=== PATIENT | female | born 1980 | race Caucasian/White ===

== ENCOUNTER → 2018-06-19 09:49 | Outpatient (CLI) | payer BC, SELFPAY ==
[2018-06-19 10:38] LABS: Hematocrit 41.9 % (37-47); Hemoglobin 14.3 g/dl (12.0-15.0); Mean Corp Hgb Conc 34.1 g/gl (32-36); Mean Corpuscular Hgb 31.8 pg (27.0-32.0); Mean Corpuscular Volume 93.1 fL (81-99); Mean Platelet Vol. 10.5 fl (6.2-12.0); Platelet Count 232 K/mm3 (150-450); RBC Distribution Width CV 12.1 % (11.6-14.6); RBC Distribution Width SD 41.1 fl (35.1-43.9); White Blood Count 5.1 K/mm3 (4.4-11.0)
[2018-06-19 10:42] LABS: Scan Indicated on CBC? Y/N NO
[2018-06-19 10:55] LABS: Estradiol 294.9 pg/mL; Free T3 2.7 pg/mL (2.18-3.98); Progesterone Level 0.18 ng/mL (See Comment); T4 Free Direct 1.12 ng/dL (0.76-1.46); Thyroid Stim Hormone (TSH) 1.29 uIU/mL (0.358-3.74)
[2018-06-19 11:04] LABS: Hemoglobin A1c 4.8 % (4.2-6.3)
[2018-06-20 08:57] LABS: Sex Hormone-binding Globulin 183.1 nmol/L (24.6-122.0)
[2018-06-21 13:30] LABS: HPV Reflexed? NOT INDICATED
== END ==
PROVIDERS: Visit Provider Obstetrics & Gynecology
DX: Z12.4 Encounter for screening for malignant neoplasm of cervix (principal); R10.2 Pelvic and perineal pain
CPT/HCPCS: 36415; 82670; 83036; 84144; 84270; 84403; 84439; 84443; 84481; 85027; 88175; G0145

== ENCOUNTER → 2019-09-05 | Outpatient (CLI) | payer BC, SELFPAY | END | disposition home or self-care (01) | LOC: LABSPEC 15:40 | PROVIDERS: Visit Provider Obstetrics & Gynecology | DX: Z12.4 Encounter for screening for malignant neoplasm of cervix (principal) ==

== ENCOUNTER 2020-02-12 12:51 | Inpatient (IN) | payer BC, SELFPAY ==
[2020-02-06 17:36] LABS: Hematocrit 39.7 % (37-47); Hemoglobin 13.7 g/dL (12.0-15.0); Mean Corp Hgb Conc 34.5 g/dL (32-36); Mean Corpuscular Hgb 32.5 pg (27.0-32.0); Mean Corpuscular Volume 94.1 fL (81-99); Mean Platelet Vol. 10.3 fl (6.2-12.0); Platelet Count 262 K/mm3 (150-450); RBC Distribution Width CV 11.7 % (11.6-14.6); RBC Distribution Width SD 39.8 fl (35.1-43.9); Red Blood Count 4.22 M/mm3 (4.2-5.4); White Blood Count 5.8 K/mm3 (4.4-11.0)
[2020-02-06 17:51] LABS: International Normalized Ratio 0.9; Prothrombin Time (Protime)PT. 12.1 SECONDS (11.7-14.9)
[2020-02-06 18:05] LABS: ALB/GLOB Ratio 1.2 RATIO (0.9-2.4); AST(SGOT) 16 U/L (15-37); Alanine Aminotransfer ALT/SGPT 23 U/L (13-56); Albumin, Serum 3.8 g/dL (3.2-5.0); Alkaline Phosphatase 62 U/L (45-117); Anion Gap 5 (5-15); BUN 16 mg/dL (7-18); BUN/Creat Ratio 17.5 RATIO (10-20); Calcium,Total 9.1 mg/dL (8.5-10.1); Chloride 108 mmol/L (98-107); Creatinine, Serum 0.91 mg/dL (0.55-1.02); EST Glomerular Filtration Rate 73 mL/min (>60); Est Glom Filt Rate - Afr Amer 88 mL/min (>60); Globulin 3.2 g/dL (2.2-4.2); Glucose 99 mg/dL (74-106); Magnesium 2.2 mg/dL (1.6-2.6); Sodium Level 142 mmol/L (136-145)
--- NOTE | 2020-02-11 08:52 | PCM.HPOB.BLA ---
- Problem List (1) Dysmenorrhea Status: Acute (2) Excessive and frequent menstruation with irregular cycle Status: Acute History and Physical Date of Admission: 02/12/20 Surgical History and Physical Date: 02/10/2020 Name: AVNI JOHNS Age: 39 Date of : 1980 Avni Johns, a 39 year old female 0 0 0 0 0, presents for LAVH, bilateral salpingectomy on February 12, 2020 at 7:30. -- Avni is her for pre op. LAVH scheduled 02/12/20, surgery pkt reviewed, consents signed and given to PT. No complaints or questions expressed today. LJW as above. Scheduled for LAVH, bilateral salpingectomy for irregular menstruation with persistent pelvic pain and dysmenorrhea. shm MEDICATIONS HISTORY: Current medications prescribed by our practice are: 1. Supplement (s) [No Strength], As Directed ALLERGIES: No Known Drug Allergies Infections - [place] Illnesses - arthritis Accidents - None Hospitalizations - see surgery left leg calf blood clot - 2006; Review of Systems: GENERAL - Denies fever, or chills SKIN - Denies skin changes EYES - Denies visual changes EARS - Denies difficulty hearing NOSE - Denies nasal congestion or bleeding MOUTH - Denies sore throat or difficulty swallowing NECK - Denies pain or swelling RESPIRATORY - Denies shortness of breath or wheezing CARDIOVASCULAR - Denies palpitations or chest pain GASTROINTESTINAL - Denies nausea, vomiting, diarrhea, constipation GENITOURINARY - missed period MUSCULOSKELETAL - Denies joint or muscle pain NEUROLOGICAL - Denies localized numbness or weakness PSYCHIATRIC - Denies depression or anxiety ENDOCRINE - Denies heat or cold intolerance, weight loss or gain HEMATO-IMMUNOLOGIC - Denies excesive bleeding with cuts SOCIAL HISTORY: Alcohol Use - drinks occasionally Smoking - denies smoking Diet - balanced Diet Lifestyle - moderate stress lifestyle Exercise - regular Seat Belt Use - always Employer - [employer] Job Description - HR Illicit Drug Use - denies use of street drugs Sexual Activity - [employer] Hours Worked - 40 hours per week Control - condoms FAMILY HISTORY: MENSTRUAL HISTORY: LMP Known?- DefiniteAmount/Duration - 4-5 days, Regularity - Regular, Frequency - monthly days, LMP - 01/30/20, Age Onset Menarche - 10 PAST PREGNANCIES: Total Pregnancies - 0; Full Term Pregnancies - 0; Premature - 0; Abortions, Induced - 0; Abortions, Spontaneous - 0; Ectopics - 0; Multiple Births - 0; Living Children - 0 SURGICAL HISTORY: 1. 02/26/2009 cholecystectomy ; - 2. 02/26/1995 left knee surgery ; - 3. 02/26/1986 eardrum reconstruction, T ; - PHYSICAL EXAM BP- 118/78 Sitting, Right arm, large cuff Weight- 222.62158 lbs Height- 63.00 inch BMI:39.41 CONSTITUTIONAL - NAD, well nourished, and well developed SKIN - No rash, lesions, or ulcers HEENT - normocephalic, atraumatic, sclerae anicteric LUNGS - CTA x2 without wheezes, crackles or rales CARDIAC - Regular rate and rhythm without rubs, murmurs, or gallops ABDOMEN - Without hepatosplenomegaly, distention, masses, rebound, or guarding; normal bowel sounds; no hernias EXTREMITIES - No edema or calf tenderness NEUROLOGICAL - normal gait, normal balance, normal motor PSYCHIATRIC - A and O to time, place, person, mood and affect External Genitial Vagina - non-tender without lesions Urethra/Urethral Meatus - non-tender Bladder - non-tender Vagina - vaginal zambrano are pink and moist without loss of rugae and no evidence of atropy Cervix - without cervical motion tenderness and has normal size and features without evident lesions Uterus - enlarged uterus 8 wks, wt 125-150 g Adnexa - clear without massess or tenderness pap 09/05/2019 - nilm ASSESSMENT/PLAN: 1. Dysmenorrhea, Unspecified, Irregular Menstruation, Unspecified and Pelvic And Perineal Pain Plan for LAVH, bilateral salpingectomy with ovarian conservation Procedural r/b/i/a reviewed, consents signed r/b ovarian conservation also reviewed Discussed anticipated outpatient hospital course, postop recovery and restrictions Preop labs and COVID19 testing pending Pt given opportunity to ask questions and questions answered to her satisfaction.
[2020-02-12] VITALS (13 sets, daily range): BP systolic 92–133; BP diastolic 47–80; PULSE 61–103; RESP 16–18; TEMP 36.2–37.2; O2SAT 94–100; BMI 38.2
[2020-02-12 05:51] LABS: Internal QC Validated? YES +Cl - CLEAR BKGD
[2020-02-12 05:52] LABS: Pregnancy, Urine Negative Negative
[2020-02-12] MEDS: Lactated Ringers 1,000 ML 40 ML IV ×3 (06:14→12:31)
[2020-02-12] MEDS: Heparin Injection (Vial) 5,000 UNIT/ML VIAL 5000 UNIT SC ×2 (06:14→20:20)
[2020-02-12] MEDS: Acetaminophen 500 MG Tablet 1000 MG PO ×2 (06:14→17:58)
[2020-02-12] MEDS: Gabapentin 600 MG Tablet PO (06:15)
[2020-02-12] MEDS: Celecoxib 200 MG Capsule 400 MG PO (06:15)
[2020-02-12 06:45] LABS: Bedside Glucose 96 mg/dL (70-110)
--- NOTE | 2020-02-12 07:30 | HYST_PTH ---
PATIENT: AVNI JOHNS LOC: [facility] U#:[id number] AGE/SX: 39/F ROOM: [facility]301 RE02/12/[address]: Dr. Ricarda Bryant MD : 1980 BED: 1 DIS: 02/14/2020 SPEC #: [id number] RECD: 02/12/20 13:33 STATUS: HIEN REKaran #: [id number] RADHA: 02/12/20 07:[address]: Ricarda Carrizales DEPT: SURGICAL PATHOLOGY RECD BY: Eva Cartwright ENTERED: 02/13/20 08:12 SP TYPE: HYSTERECT OTHR DR: No Primary Care Phys Tissues: Uterus, NOS Procedures: Surgery Specimen Level V HEADER OPERATION: ERAS, hysterectomy, laparoscopic assisted vaginal hysterectomy PRE-OP DIAGNOSIS: Dysmenorrhea; excessive and frequent menstruation TISSUE SUBMITTED: Uterus, cervix and bilateral fallopian tubes MICROSCOPIC DIAGNOSIS Uterus, cervix and bilateral fallopian tube, vaginal hysterectomy and bilateral salpingectomy: Cervix - mild chronic inflammation. Endometrium - proliferative endometrium. Myometrium - intramural leiomyomas (largest measuring 1.5 cm in greatest dimension). - Focal adenomyosis. Bilateral fallopian tube - no pathologic diagnosis. SJ:norman 02/16/20 MICROSCOPIC DESCRIPTION Slides are reviewed. GROSS DESCRIPTION Received in fixative is one container labeled with the patient's name and designated uterus. The specimen consists of a uterus with attached cervix and attached left fallopian tube and detached right fallopian tube. The uterus with cervix measures 7.5 x 6 x 3.7 cm and weighs 65 gm. The ectocervix is grossly unremarkable. The endocervical canal measures 3.2 cm in length and is grossly unremarkable. The elongated endometrial cavity measures 3.2 x 2 cm. The reddish-cuevas, velvety endometrium measures 0.2 cm in thickness. The myometrium measures 1.5 cm in average thickness and contains multiple rubbery cuevas-white nodules ranging in size from 0.9 to 1.5 cm in greatest dimension. The right and left fallopian tubes are similar in appearance with average lengths of 5.0 cm and average diameters of 0.5 cm. A distinct fimbriated end is not identified in the right fallopian tube. Glass Toughening Operator sections are submitted in ten cassettes as follows: 1 - anterior cervix, 2 - posterior cervix, 3 & 4 - anterior uterine wall, 5 & 6 - posterior uterine wall, 7 & 8 - myometrial masses, 9 - right fallopian tube, 10 - left fallopian tube. / AM:norman 02/13/20 TC:1 CPT: 28001
[2020-02-12] MEDS: Cefazolin 2 GM in 0.9% Normal Saline 100 ML IV (07:40)
[2020-02-12] MEDS: Bupivacaine 0.25% 30 ML Vial (08:12)
--- NOTE | 2020-02-12 12:30 | OP.PCM_ITS ---
Report of Operation Date of Procedure: 02/12/20 Pre-Operative Diagnosis: Bladder injury, cystotomy Post-Operative Diagnosis: Same Surgery/Procedure Performed:: Open repair of bladder injury cystotomy and cystoscopy Description of Surgical Findings:: 39-year-old female who was undergoing a laparoscopic assisted vaginal hysterectomy during the middle the case I was called in to assist because the active directory engineer had recognized an injury to her bladder on cystoscopy. I came down to the operating room immediately after being called we did a cystoscopy and he could see that a trocar was in the dome of the bladder coming through an extraperitoneal puncture site. And then inferior to the trocar was a puncture site x2 where an apparent instrument advanced through the bladder to assist with the hysterectomy. After evaluating the patient we did a cystoscopy we saw the trocar injury in the top of the bladder the trocar was still in place and we saw the posterior injury through the posterior aspect of the bladder it was behind the trigone both the left and right ureter orifice were effluxing and clear no injury to the ureter was identified. At this point I looked in laparoscopically she was a very obese lady with a BMI of 38 and lots of bowel in the way and the injury was deep in the pelvis so I recommended we proceed with an open repair of his bladder injury. So we made a Pfannenstiel incision dissected down through the fat down to the anterior fascia we opened up the fascia and advanced the like incision we freed up the rectus muscle off the fascia and then we opened up the rectus muscle in the midline identified the peritoneum and opened up the peritoneum. Then we placed a self-retaining retractor inside the abdomen we packed off the small bowel with 2 lap sponges. We then used a deep Kyung to retract the ovaries and the sigmoid colon off the bladder. The catheter then placed by the nursing staff into the bladder when I looked inside deep in the pelvis the catheter was through the hole in the back of the bladder. So we deflated the balloon and the catheter he pulled the catheter back this allowed me to see the first hole in the back of the bladder. Place to stay stitch on this whole and then I did several interrupted stitches following up along the midline of the bladder. We then placed the catheter back in the bladder and filled the bladder up with 100 cc of sterile saline and there was still leakage coming from the bladder fairly significant the retracted the bladder up more and could see there was posterior to the first puncture there is another large puncture right in the midline. I then ran the stitch line along this puncture site to close the second perforation that was identified. This was using a 3-0 Vicryl with a continuous stitch. After he woke finished closing the second hole that was along the same line filled the bladder up in the still some minor leakage. We looked back in with a cystoscope we could see that the mucosa was together but there was still some minor leakage somewhere along the suture line so I then at this point I used a second 3-0 Vicryl and then a second interrupted layer to close the bladder in 2 layers. Then we filled the bladder up again with water and at this point there was very little leakage and was a satisfactory closure. I did not think any further sutures would be of much use and the mucosa was together. Then at this point the bladder was mostly leaking from the puncture site in the top of the bladder but this was extraperitoneal and since we can let this heal from the extraperitoneal fashion its not necessary to close this bladder puncture site since it will be extraperitoneal. At this point the catheter was left in the patient's bladder we then removed the 2 lap sponges we then closed the peritoneum and then we closed the fascia with strata fix and then the incision was closed by the active directory engineer. She will need to go home with a catheter and she will need a cystogram and an office visit in 2 weeks for checkup. Successful closure of a bladder injury during a laparoscopic assisted hysterectomy a very complicated injury in the posterior aspect of bladder and very difficult repair but at the end I think we got the repair close together satisfactorily and I think if the catheter is left and it should heal up properly. Type of Anesthesia:: General Drains: sandoval 18 fr - Admit VTE Documentation VTE Present on Admission: No
[2020-02-12] MEDS: Ondansetron 4 MG/2 ML Vial IV (12:41)
--- NOTE | 2020-02-12 12:58 | PCM.OPRPT ---
Problem List (1) Dysmenorrhea Status: Acute (2) Excessive and frequent menstruation with irregular cycle Status: Acute Report of Operation Date of Procedure: 02/12/20 Pre-Operative Diagnosis: 1. Dysmenorrhea. 2. Excessive and frequent menstruation with irregular cycle Post-Operative Diagnosis: 1. Dysmenorrhea. 2. Excessive and frequent menstruation with irregular cycle. 3. Cystotomy Surgery/Procedure Performed:: 1. Total laparoscopic hysterectomy. 2. Bilateral salpingectomy. 3. Cystoscopy. 4. Exploratory laparotomy. 5. cystotomy repair Description of Surgical Findings:: Narrow bony pelvis Normal-appearing uterus, bilateral tubes and ovaries No evidence of endometriosis pullman clerk: Rhoda Mckinney pullman clerk: Joselin Waters Type of Anesthesia:: General, Local Anesthesiologist: José Miguel Eng Specimen's removed: 1. uterus, cervix, bilateral tubes Drains: 350 ml Estimated Blood Loss (mL): 500 ml Fluids Replaced: 2000 ml Description of Procedure: Indications: 39-year-old nulligravida with a history of chronic dysmenorrhea refractory to medical management as well as frequent and irregular menstruation presents for scheduled hysterectomy, bilateral salpingectomy with ovarian conservation. The patient was counseled regarding TLH versus LAVH given the lack of descensus with final plan to be assessed intraoperatively. Procedure: Patient was brought to the operating room and signed was performed. She is placed in the dorsal supine position and induced under general anesthesia and intubated. She was repositioned to dorsolithotomy and examination under anesthesia was performed. Her arms were tucked at her sides. The abdomen and perineum were prepped and draped in sterile fashion. A Ashford catheter was placed into the bladder patient was placed into high lithotomy and a speculum placed vaginally. The cervix was grasped the anterior cervical lip and the uterus sounded to 7 cm. An Advincula uterine manipulator was placed, the tenaculum removed and the manipulator was secured secured. The patient was placed into low lithotomy attention turned to the abdomen. An inferior umbilical incision was made using the scalpel and Veress needle was placed with successful hanging drop test and no aspirate. Abdominal entry pressure was less than 5 mmHg. The abdomen was insufflated to 15 mmHg. The Veress needle was removed and a 5 mm port was placed at this site under laparoscopic guidance into the abdomen. A tap block was placed under laparoscopic guidance in the right and left lower quadrant using half percent Sensorcaine. Incisions were made at each of the sites and 5 mm ports also placed. A incision was also made suprapubically and a 5 mm port also placed at the site. The patient was placed into Trendelenburg. the abdomen and pelvis were inspected there was no evidence of endometriosis or significant scar tissue. Attention was turned to the left adnexa. The left tubal fimbria was identified and the left mesosalpinx was transected to the level of the uterine cornua using the Enseal device. In the process of this the tube was transected and removed via the port. The left round ligament was clamped, electrocoagulated and cut. The broad ligament was opened anteriorly posteriorly and dissection performed to identify the ureter. The left bladder flap was created and uterine vessels were skeletonized with opening of the posterior leaflet of the broad ligament and the left utero-ovarian ligament was serially clamped electrocoagulated and cut using the Enseal device. Right salpingectomy was performed using the Enseal device. The right tube was transected at the cornual region and removed via ports. Although I could identify the right ureter at the level of the pelvic brim was unable to be identified further in the pelvis peritoneally. Right round ligament was clamped, electrocoagulated and cut also using the Enseal. The right broad ligament was opened anteriorly posteriorly and dissection performed however the ureter was still not yet identified. The right bladder flap was created completion of the bladder flap using the monopolar luciano and uterine vessels were skeletonized with opening of the posterior leaflet of the broad ligament. The right utero-ovarian ligament was serially clamped electrocoagulated and cut using the Enseal device. The uterine vessels bilaterally were clamped, electrocoagulated and cut using the Enseal device. A colpotomy was performed using the monopolar luciano. The manipulator vaginal balloon cuff was inflated. There was bleeding from an apical right vaginal arteriole. Suction clinical education coordinator was introduced to gain further visualization. The vessel was unable to be clamped appropriately using the Enseal device and instead was successfully clamped using the [place] grasper. Monopolar electrocoagulation was performed with excellent hemostasis obtained. The posterior cul-de-sac sac was subsequently cleared of blood and clot and completion of the colpotomy made again using the monopolar luciano. The patient was flattened and attention turned to the perineum. She was placed into high lithotomy. The Advincula cuff balloon was deflated and the manipulator was removed along with the uterus and cervix. The vaginal cuff was reapproximated using serial figure of 8-0 Vicryl sutures. Cystoscopy was performed demonstrating bilateral ureteral reflux however it appeared there was a defect in the posterior bladder apical to the trigone. I called Dr. Briggs, Urology, for intraoperative consultation for cystotomy repair. The patient was placed into low lithotomy and I returned to the abdomen. The abdomen was reinsufflated and laparoscopy again performed it appeared that the suprapubic trocar had dislodged no longer in the abdomen and there was fluid accumulation in the pelvis consistent with blood-tinged cystoscopy fluid. I attempted to replace the suprapubic trocar however at this time Dr. Briggs arrived, thus I aborted replacement of the trocar. Dr. Briggs scrubbed in. Please see his note for further details of his repeat cystoscopy and ex lap via Pfannenstiel which was performed to repair the bladder injury cystotomy. The peritoneum was closed using 2-0 Vicryl and the fascia was closed using oh strata fix. The subcutaneous tissue was reapproximated using 2-0 Vicryl running suture by myself. The skin was reapproximated using 4-0 Monocryl. The additional laparoscopic port sites were closed using 4-0 Monocryl. Steri-Strips and OpSite were placed over those sites well a Mepilex occlusive dressing was placed over the Pfannenstiel. The patient was placed into dorsal supine position, awakened, extubated and transferred to the recovery room without complication. Sponge, instrument and needle counts were correct x2. - Complications Bladder injury cystotomy - Admit VTE Documentation VTE Present on Admission: No VTE Mechan Device Prophylaxis: SCD's VTE Pharm Prophylaxis ordered?: Yes
[2020-02-12] MEDS: Tolterodine Tartrate 4 MG CAP.SA PO (14:15)
[2020-02-12] MEDS: Ketorolac 30 MG/ML Syringe IV ×2 (16:18→20:20)
--- NOTE | 2020-02-12 17:14 | PCM.DC.URO ---
Suture Line Care: Avoid Pulling/Pushing, Avoid Pinching/Bending Catheter: Ashford to leg bag, Ashford to large bag Drain: [place] Allergies/Adverse Reactions: Allergies No Known Allergies Allergy (Verified 02/06/20 08:03) Medications to take at Discharge Fexofenadine HCl [[place] Allergy] 60 mg PO DAILY 02/06/20 Fish,Saf,Flx,Brg Oils/O3,6,9N2 [Dyek-Qwyd-Fqmnkd Oil Softgel] 3 ea PO DAILY 02/06/20 Multivitamin [One Daily Essential] 1 ea PO DAILY 02/06/20 [place]-3 Fatty Acids [Fish Oil] 500 mg PO DAILY 02/06/20 Primary Care Physician: Care Physician,No Primary [Primary Care Provider] - Test Results: Test results from this visit will be discussed in further detail at your follow-up appointment, if applicable. Please Follow Up With: Niko Briggs MD - [phone] When: please call to make an appointment.
[2020-02-12] MEDS: Docusate Sodium 100 MG Capsule PO (20:21)
[2020-02-13] MEDS: Acetaminophen 500 MG Tablet 1000 MG PO ×4 (01:00→18:00)
[2020-02-13 01:04] VITALS: BP 103/53; PULSE 102; RESP 18; TEMP 36.8; O2SAT 94
[2020-02-13] MEDS: Ketorolac 30 MG/ML Syringe IV ×2 (02:53→08:29)
[2020-02-13] MEDS: 0.9% Saline Lock 10 ML Syringe IV ×6 (02:58→21:02)
[2020-02-13 03:00] VITALS: BP 97/52; PULSE 94; RESP 16; TEMP 36.9; O2SAT 96
[2020-02-13 07:20] VITALS: O2SAT 98
[2020-02-13 07:21] LABS: Hematocrit 29.4 % (37-47); Hemoglobin 9.9 g/dL (12.0-15.0); Mean Corp Hgb Conc 33.7 g/dL (32-36); Mean Corpuscular Hgb 31.6 pg (27.0-32.0); Mean Corpuscular Volume 93.9 fL (81-99); Mean Platelet Vol. 10.2 fl (6.2-12.0); Platelet Count 199 K/mm3 (150-450); RBC Distribution Width CV 11.9 % (11.6-14.6); RBC Distribution Width SD 40.9 fl (35.1-43.9); Red Blood Count 3.13 M/mm3 (4.2-5.4); White Blood Count 9.7 K/mm3 (4.4-11.0)
[2020-02-13 07:53] LABS: Anion Gap 5 (5-15); BUN 10 mg/dL (7-18); BUN/Creat Ratio 12.7 RATIO (10-20); Calcium,Total 7.5 mg/dL (8.5-10.1); Chloride 109 mmol/L (98-107); Creatinine, Serum 0.79 mg/dL (0.55-1.02); EST Glomerular Filtration Rate 86 mL/min (>60); Est Glom Filt Rate - Afr Amer 104 mL/min (>60); Estimated Creatinine Clearance 81.74 ml/min; Glucose 110 mg/dL (74-106); Potassium 3.9 mmol/L (3.5-5.1); Sodium Level 139 mmol/L (136-145)
[2020-02-13 08:01] VITALS: BP 94/54; PULSE 86; RESP 18; TEMP 36.8; O2SAT 97
[2020-02-13] MEDS: Heparin Injection (Vial) 5,000 UNIT/ML VIAL 5000 UNIT SC ×2 (08:11→20:50)
[2020-02-13] MEDS: Loratadine 10 MG Tablet 5 MG PO (08:29)
[2020-02-13] MEDS: Docusate Sodium 100 MG Capsule PO ×2 (08:30→20:49)
[2020-02-13] MEDS: Tolterodine Tartrate 4 MG CAP.SA PO (08:30)
--- NOTE | 2020-02-13 08:30 | PN.OBGYN_ITS ---
Patient Problems: Active and Suspected Problems Dysmenorrhea (Acute) Excessive and frequent menstruation with irregular cycle (Acute) Subjective: Denies painfulness. No nausea, vomiting, or flatus. Tolerates PO with good appetite. Denies chest pain, shortness of breath. Objective: AVSS - Physical Exam Vitals/I&O's: Vital Signs Temp Pulse Resp BP Pulse Ox 98.2 F 84 18 112/62 94 02/14/20 00:35 02/14/20 00:35 02/14/20 00:35 02/14/20 00:35 02/14/20 00:35 Oxygen Flow Rate (L/min) 6 Oxygen Delivery Method Room Air Weight: 101.1 kg Body Mass Index (BMI) 38.2 Intake and Output for Last 24 Hours 02/12/20 02/13/20 02/14/20 23:59 23:59 23:59 Intake Total 3205.33 / 3605.33 1650 / 2150 500 / 500 Output Total 750 / 1150 2125 / 2675 550 / 550 Balance 2455.33 / 2455.33 -475 / -525 -50 / -50 General: Alert, Oriented x3, Cooperative, No apparent distress HEENT: Atraumatic, Normocephalic Lungs: Clear to auscultation, Normal air movement Cardiovascular: Regular rate, Regular Rhythm, Normal S1, Normal S2 Abdomen: Soft, Non Tender, Non-Distended, Hypoactive Bowel Sounds, - - Incisional dressings c/d/i Extremities: No edema, No Calf Tenderness Neurological: Neuro grossly intact Psych/Mental Status: Normal Affect, Appropriate, Alert and oriented to time, place, person, mood and affect Microbiology Past 72 Hours 02/11/20 09:20 Interface Orders SARS-CoV-2 Antigen (Rapid) - Final Laboratory Results 02/13/20 06:51: WBC 9.7, RBC 3.13 L, Hgb 9.9 L, Hct 29.4 L, MCV 93.9, MCH 31.6, MCHC 33.7, RDW Std Deviation 40.9, RDW Coeff of Mark 11.9, Plt Count 199, MPV 10.2 02/13/20 06:51: Sodium 139, Potassium 3.9, Chloride 109 H, Carbon Dioxide 25.0, Anion Gap 5, BUN 10, Creatinine 0.79, Estim Creat Clear Calc 81.74, Est GFR (MDRD) Af Amer 104, Est GFR (MDRD) Non-Af 86, BUN/Creatinine Ratio 12.7, Glucose 110 H, Calcium 7.5 L Current Medications Acetaminophen (Acetaminophen 500 Mg Tablet) 1,000 mg PO Q6 [facility] Last Admin: 02/14/20 01:10 Dose: 1,000 mg Documented by: Ciprofloxacin HCl (Ciprofloxacin 500 Mg Tablet) 500 mg PO DAILY [facility] Last Admin: 02/13/20 10:20 Dose: 500 mg Documented by: Docusate Sodium (Docusate Sodium 100 Mg Capsule) 100 mg PO BID [facility] Last Admin: 02/13/20 20:49 Dose: 100 mg Documented by: Heparin Sodium (Porcine) (Heparin Injection (Vial) 5,000 Unit/Ml Vial) 5,000 unit SC Q12H [facility] Last Admin: 02/13/20 20:50 Dose: 5,000 unit Documented by: Hydromorphone HCl (Hydromorphone 0.5 Mg/0.5 Ml Syringe) 0.5 mg IV Q2H PRN PRN PRN Reason: Pain Score 6-10 Ketorolac Tromethamine (Ketorolac 30 Mg/Ml Syringe) 30 mg IV Q6H [facility] Stop: 02/17/20 15:01 Last Admin: 02/14/20 00:34 Dose: Not Given Documented by: Loratadine (Loratadine 10 Mg Tablet) 5 mg PO DAILY [facility] Last Admin: 02/13/20 08:29 Dose: 5 mg Documented by: Magnesium Chloride (Magnesium Chloride 64 Mg Delay Rel.Tablet) 128 mg PO DAILY PRN PRN PRN Reason: Constipation Nutritional Formula (Lactose Free) (Ensure Enlive 120 Ml Liquid) 120 ml PO TIDCM [facility] Last Admin: 02/13/20 17:46 Dose: 120 ml Documented by: Ondansetron HCl (Ondansetron Odt 4 Mg Tablet) 4 mg PO Q6H PRN PRN PRN Reason: NAUSEA Oxycodone HCl (Oxycodone 5 Mg Tablet) 5 - 10 mg PO Q4H PRN PRN PRN Reason: Pain Score 4-10 Last Admin: 02/13/20 15:14 Dose: 5 mg Documented by: Sodium Chloride (0.9% Saline Lock 10 Ml Syringe) 10 - 40 ml IV UD PRN PRN Reason: SALINE FLUSH Last Admin: 12/18/20 21:02 Dose: 10 ml Documented by: Tolterodine Tartrate (Tolterodine Tartrate 4 Mg Cap.Sa) 4 mg PO DAILY KULDIP Last Admin: 02/13/20 08:30 Dose: 4 mg Documented by: Medical Necessity - Tobacco Use Smoking Status: Never smoker Tobacco Use: Non-smoker Assessment/Plan All Active Problems Dysmenorrhea (Acute) Excessive and frequent menstruation with irregular cycle (Acute) 39yo POD#1 s/p TLH, bilateral salpingectomy with ex lap for cystotomy repair -Low calcium, corrected level 7.7 Will replete -Doing well overall -Maintain sandoval catheter -Cipro per Urology recommendation -Routine postop care today
[2020-02-13] MEDS: Ciprofloxacin 500 MG Tablet PO (10:20)
--- NOTE | 2020-02-13 11:45 | CASEMGMT ---
RN JIM Face to Face with patient for initial transition planning/care coordination assessment. RN CM introduced self and role at [facility]. Patient sitting in chair, alert and oriented. Patient willing to participate in assessment and is able to answer all questions appropriately. Care providers, pharmacy, and demographics verified. Patient wishes to discharge home, denies need for home health at this time. Patient states she has no further needs or concerns at this time. CM to follow for discharge planning needs that may arise. PCP: Patient has no PCP, lives in [place], encourage patient to look into establishing with PCP at home. Specialists: none Preferred Pharmacy: [facility] Retail Insurance: [employer] Prescription Benefit: yes Living Will/HPOA: none LNOK: parents Living Arrangements: Patient staying with parents till she has follow-up appts with [facility] then going back to home in [place]. Parents live in a single story home with 2 steps to enter . Transportation: parents DME/HHC: Patient denies DME or previous HHC. Disposition Plan: Patient to discharge to parent's home with follow-up plans in place. Ashley STEPHENSON, RN, CM
[2020-02-13 14:00] VITALS: BP 106/61; PULSE 86; RESP 18; TEMP 36.7; O2SAT 100
[2020-02-13] MEDS: oxyCODONE 5 MG Tablet PO (15:14)
[2020-02-13 21:02] VITALS: BP 114/54; PULSE 93; RESP 18; TEMP 37; O2SAT 95
[2020-02-14 00:35] VITALS: BP 112/62; PULSE 84; RESP 18; TEMP 36.8; O2SAT 94
[2020-02-14] MEDS: Acetaminophen 500 MG Tablet 1000 MG PO ×2 (01:10→06:43)
--- NOTE | 2020-02-14 06:04 | PCM.PN.OB ---
Patient Problems: Active and Suspected Problems Dysmenorrhea (Acute) Excessive and frequent menstruation with irregular cycle (Acute) Subjective: OOB, reports lightheadedness resolved. Yesterday's headache resolved with caffeine. No issues ambulating yesterday. No flatus yet. Denies chest pain, shortness of breath, fever, chills, nausea or vomiting. Objective: AVSS - Physical Exam Vitals/I&O's: Vital Signs Temp Pulse Resp BP Pulse Ox 98.2 F 84 18 112/62 94 02/14/20 00:35 02/14/20 00:35 02/14/20 00:35 02/14/20 00:35 02/14/20 00:35 Oxygen Flow Rate (L/min) 6 Oxygen Delivery Method Room Air Weight: 101.1 kg Body Mass Index (BMI) 38.2 Intake and Output for Last 24 Hours 02/12/20 02/13/20 02/14/20 23:59 23:59 23:59 Intake Total 3205.33 / 3605.33 1650 / 2150 500 / 500 Output Total 750 / 1150 2125 / 2675 550 / 550 Balance 2455.33 / 2455.33 -475 / -525 -50 / -50 General: Alert, Oriented x3, Cooperative, No apparent distress HEENT: Atraumatic, Normocephalic Lungs: Clear to auscultation, Normal air movement Cardiovascular: Regular rate, Regular Rhythm Abdomen: Bowel Sounds Present, Soft, Non Tender, Non-Distended, - - Laparoscopic Incisional sites well approximated, dry and intact. Mepelix dressing approx 25% saturated, with laparotomy incision appearing dry. Extremities: No edema, No Calf Tenderness Neurological: Neuro grossly intact Psych/Mental Status: Normal Affect, Appropriate, Alert and oriented to time, place, person, mood and affect Microbiology Past 72 Hours 02/11/20 09:20 Interface Orders SARS-CoV-2 Antigen (Rapid) - Final Laboratory Results 02/13/20 06:51: WBC 9.7, RBC 3.13 L, Hgb 9.9 L, Hct 29.4 L, MCV 93.9, MCH 31.6, MCHC 33.7, RDW Std Deviation 40.9, RDW Coeff of Mark 11.9, Plt Count 199, MPV 10.2 02/13/20 06:51: Sodium 139, Potassium 3.9, Chloride 109 H, Carbon Dioxide 25.0, Anion Gap 5, BUN 10, Creatinine 0.79, Estim Creat Clear Calc 81.74, Est GFR (MDRD) Af Amer 104, Est GFR (MDRD) Non-Af 86, BUN/Creatinine Ratio 12.7, Glucose 110 H, Calcium 7.5 L Current Medications Acetaminophen (Acetaminophen 500 Mg Tablet) 1,000 mg PO Q6 [facility] Last Admin: 02/14/20 01:10 Dose: 1,000 mg Documented by: Ciprofloxacin HCl (Ciprofloxacin 500 Mg Tablet) 500 mg PO DAILY [facility] Last Admin: 02/13/20 10:20 Dose: 500 mg Documented by: Docusate Sodium (Docusate Sodium 100 Mg Capsule) 100 mg PO BID [facility] Last Admin: 02/13/20 20:49 Dose: 100 mg Documented by: Heparin Sodium (Porcine) (Heparin Injection (Vial) 5,000 Unit/Ml Vial) 5,000 unit SC Q12H [facility] Last Admin: 02/13/20 20:50 Dose: 5,000 unit Documented by: Hydromorphone HCl (Hydromorphone 0.5 Mg/0.5 Ml Syringe) 0.5 mg IV Q2H PRN PRN PRN Reason: Pain Score 6-10 Ketorolac Tromethamine (Ketorolac 30 Mg/Ml Syringe) 30 mg IV Q6H [facility] Stop: 02/17/20 15:01 Last Admin: 02/14/20 00:34 Dose: Not Given Documented by: Loratadine (Loratadine 10 Mg Tablet) 5 mg PO DAILY [facility] Last Admin: 02/13/20 08:29 Dose: 5 mg Documented by: Magnesium Chloride (Magnesium Chloride 64 Mg Delay Rel.Tablet) 128 mg PO DAILY PRN PRN PRN Reason: Constipation Nutritional Formula (Lactose Free) (Ensure Enlive 120 Ml Liquid) 120 ml PO TIDCM [facility] Last Admin: 02/13/20 17:46 Dose: 120 ml Documented by: Ondansetron HCl (Ondansetron Odt 4 Mg Tablet) 4 mg PO Q6H PRN PRN PRN Reason: NAUSEA Oxycodone HCl (Oxycodone 5 Mg Tablet) 5 - 10 mg PO Q4H PRN PRN PRN Reason: Pain Score 4-10 Last Admin: 02/13/20 15:14 Dose: 5 mg Documented by: Sodium Chloride (0.9% Saline Lock 10 Ml Syringe) 10 - 40 ml IV UD PRN PRN Reason: SALINE FLUSH Last Admin: 02/13/20 21:02 Dose: 10 ml Documented by: Tolterodine Tartrate (Tolterodine Tartrate 4 Mg Cap.Sa) 4 mg PO DAILY [facility] Last Admin: 02/13/20 08:30 Dose: 4 mg Documented by: Medical Necessity - Tobacco Use Smoking Status: Never smoker Tobacco Use: Non-smoker Assessment/Plan All Active Problems Dysmenorrhea (Acute) Excessive and frequent menstruation with irregular cycle (Acute) 39yo POD#2 s/p TLH, bilateral salpingectomy with ex lap for cystotomy repair -Doing well. -UO appropriate and unremarkable abdominal exam, wbc wnl. -Rpt CBC today -Plan for d/c home with sandoval catheter in situ
--- NOTE | 2020-02-14 06:27 | PCM.DC.VHY ---
Discharge Diet: No Restrictions Discharge Activity: Return to Normal Activity, May not drive while taking narcotic pain medications., May Shower, - - No tub bath for 2 weeks Return to work on:: 03/29/20 May resume sexual activity in: 6 weeks Lifting Restrictions: 10 lb Call your doctor if your incision/area has: Continuous Slow Oozing, Sudden Increased Bleeding, Increased Pain/ Swelling, Increased Redness, Foul Smelling Discharge Call your doctor if you observe: Fever of 101 or Higher, Inability to have a bowel movement, Using more than one pad per hour, Shortness of breath, Chest pain, Calf discomfort, Uncontrolled pain Suture Line Care: Avoid Pulling/Pushing, Avoid Pinching/Bending Remove Dressing in (days):: 2 Cleanse incision/area with: Soap & Water Catheter: [place] to leg bag, [place] to large bag Drain: [place] Additional Instructions: Please take a probiotic daily during your recovery. Allergies/Adverse Reactions: Allergies No Known Allergies Allergy (Verified 02/06/20 08:03) Medications to take at Discharge Fexofenadine HCl [[place] Allergy] 60 mg PO DAILY 02/06/20 Fish,Saf,Flx,Brg Oils/O3,6,9N2 [Delr-Pjei-Ozrezk Oil Softgel] 3 ea PO DAILY 02/06/20 Multivitamin [One Daily Essential] 1 ea PO DAILY 02/06/20 Napanoch-3 Fatty Acids [Fish Oil] 500 mg PO DAILY 02/06/20 Ciprofloxacin [Cipro] 1 tab PO DAILY #10 tab 02/14/20 Docusate Sodium [Colace] 100 mg PO BID PRN #60 cap 02/14/20 Ibuprofen 600 mg PO TID PRN #30 tab 02/14/20 Oxycodone [Oxyir] 1 tab PO Q6H PRN 7 Days #28 tab 02/14/20 Saccharomyces Boulardii [Florastor] 250 mg PO DAILY #30 cap 02/14/20 Tolterodine Tartrate [Detrol LA] 4 mg PO DAILY #10 cap.sa 02/14/20 The following prescriptions were given: Ciprofloxacin [Cipro] 1 tab PO DAILY #10 tab Transmission Status: Pending to [facility] Docusate Sodium [Colace] 100 mg PO BID PRN #60 cap PRN Reason: Constipation Transmission Status: Received by [facility] Tolterodine Tartrate [Detrol LA] 4 mg PO DAILY #10 cap.sa Transmission Status: Received by [facility] Saccharomyces Boulardii [Florastor] 250 mg PO DAILY #30 cap Transmission Status: Pending to [facility] Ibuprofen 600 mg PO TID PRN #30 tab PRN Reason: Pain Score 1-10 Transmission Status: Pending to [facility] Oxycodone [Oxyir] 1 tab PO Q6H PRN 7 Days #28 tab PRN Reason: Pain Score 6-10 Transmission Status: Received by [facility] Primary Care Physician: Care Physician,No Primary [Primary Care Provider] - Test Results: Test results from this visit will be discussed in further detail at your follow-up appointment, if applicable. Please Follow Up With: Niko Briggs MD - [phone] When: please call to make an appointment. Please Follow Up With: Ricarda Carrizales MD When: 1-2 weeks as scheduled
[2020-02-14 06:35] VITALS: BP 118/72; PULSE 84; RESP 18; TEMP 36.8; O2SAT 97
[2020-02-14] MEDS: 0.9% Saline Lock 10 ML Syringe IV (06:43)
[2020-02-14 07:12] LABS: Hematocrit 27.8 % (37-47); Hemoglobin 9.6 g/dL (12.0-15.0); Mean Corp Hgb Conc 34.5 g/dL (32-36); Mean Corpuscular Hgb 32.8 pg (27.0-32.0); Mean Corpuscular Volume 94.9 fL (81-99); Mean Platelet Vol. 10.3 fl (6.2-12.0); Platelet Count 166 K/mm3 (150-450); RBC Distribution Width CV 12.1 % (11.6-14.6); RBC Distribution Width SD 42.5 fl (35.1-43.9); Red Blood Count 2.93 M/mm3 (4.2-5.4); White Blood Count 6.1 K/mm3 (4.4-11.0)
[2020-02-14 07:20] VITALS: O2SAT 95
[2020-02-14 07:44] LABS: Anion Gap 2 (5-15); BUN 10 mg/dL (7-18); BUN/Creat Ratio 15.9 RATIO (10-20); Chloride 111 mmol/L (98-107); Creatinine, Serum 0.63 mg/dL (0.55-1.02); EST Glomerular Filtration Rate 112 mL/min (>60); Est Glom Filt Rate - Afr Amer 135 mL/min (>60); Glucose 87 mg/dL (74-106); Sodium Level 141 mmol/L (136-145)
[2020-02-14 07:52] VITALS: BP 116/60; PULSE 85; RESP 16; TEMP 36.8; O2SAT 99
[2020-02-14] MEDS: Docusate Sodium 100 MG Capsule PO (07:56)
[2020-02-14] MEDS: Ciprofloxacin 500 MG Tablet PO (07:56)
[2020-02-14] MEDS: Tolterodine Tartrate 4 MG CAP.SA PO (07:57)
[2020-02-14] MEDS: Loratadine 10 MG Tablet 5 MG PO (07:57)
== END 2020-02-14 10:25 | disposition home or self-care (01) | DRG 742 ==
LOC: SDC 13:23 → MS3 02-13 07:54
PROVIDERS: Anesthesiology; Admitting Provider Obstetrics & Gynecology; Referring Provider Obstetrics & Gynecology; Visit Provider Obstetrics & Gynecology
PROC: 0UT9FZZ Resection of Uterus, Via Natural or Artificial Opening With Percutaneous Endoscopic Assistance (ICD-10-PCS; principal; 2020-02-12 07:05)
DX: D25.1 Intramural leiomyoma of uterus (principal); N99.71 Accidental puncture and laceration of a genitourinary system organ or structure during a genitourinary system procedure; N80.0 Endometriosis of uterus; N72 Inflammatory disease of cervix uteri; K21.9 Gastro-esophageal reflux disease without esophagitis; Z86.718 Personal history of other venous thrombosis and embolism; Y83.8 Other surgical procedures as the cause of abnormal reaction of the patient, or of later complication, without mention of misadventure at the time of the procedure; Y82.8 Other medical devices associated with adverse incidents; Y92.234 Operating room of hospital as the place of occurrence of the external cause; E66.9 Obesity, unspecified; Z68.38 Body mass index [BMI] 38.0-38.9, adult
CPT/HCPCS: 36415; 80048; 80053; 81025; 82962; 83735; 85027; 85610; 86850; 86900; 86901; 87426; 88307; 94762; C9803; J7120; A4216; C1760; J0610; J2405

== ENCOUNTER 2020-02-16 13:14 | Emergency (ER) | payer BC, SELFPAY ==
[2020-02-12 15:47] VITALS: BMI 38.2
[2020-02-16 13:15] VITALS: BP 148/95; PULSE 115; RESP 16; TEMP 36.7; O2SAT 100; BMI 37.8
--- NOTE | 2020-02-16 15:33 | ED.VIS.GEN ---
History of Present Illness Chief Complaint: Sandoval C/O Informant: Patient Onset: Today Context: Gradual Onset - after having hard BM Timing: Continuous Quality: pain Location: perineum, where sandoval cath is present Current Severity: Moderate Maximum Severity: Moderate Worsened by: nothing Relieved by: nothing Associated Symptoms: none. Narrative: Patient states she recently had a baby, she had complications including a tear of her bladder, she required a hysterectomy, and operative bladder repair, and currently has a Sandoval catheter. Surgeries were performed 5 days ago. She denies having any abdominal pain, but states this morning she had her first bowel movement since she has been home, and it was hard and fairly large. She states it was a little painful and uncomfortable to have it, and then afterwards, she started having pain in her perineum where the Sandoval catheter exits, and it did not go away. She states she has had no external bleeding, or bleeding within the Sandoval catheter, which has still been draining as it was before. Past Medical History - Allergies and Home Meds Allergies/Adverse Reactions: Allergies No Known Allergies Allergy (Verified 02/16/20 13:17) Primary Care Physician: Niko Briggs MD [STAFF PHYSICIAN] - As Needed Past Medical History: None Surgical History: hysterectomy - w/ cystorrhaphy Lives: With Family Smoking Status: Never smoker Review of Systems General: Denies: Chills, Fever, Sweats Eyes: Denies: Visual changes - bilaterally, Diplopia ENT: Denies: Rhinorrhea, Sore throat Cardiovascular: Denies: Chest pain, Palpitations Respiratory: Denies: Dyspnea, Cough, Dyspnea on exertion Gastrointestinal: Reports: Constipation. Denies: Abdominal pain, Nausea, Vomiting, Diarrhea, Melena, Hematochezia Genitourinary: Reports: - - perineum pain. see HPI.. Denies: Dysuria, Hematuria, Frequency Musculoskeletal: Denies: Back pain, Extremity Pain Skin: Denies: Rash, Wounds Neurological: Denies: Headache, Weakness, Numbness Physical Exam Vital Signs/Narrative: Vital Signs Temp Pulse Resp BP Pulse Ox 02/16/20 13:15 98.1 F 115 H 16 148/95 H 100 Inital Vital Signs reviewed: Yes General: Well nourished, Well developed, No Acute Distress Head: Normocephalic, Atraumatic ENT: Moist mucous membranes, No rhinorrhea Neck: Supple, Nontender Abdomen: Soft, Nontender, Nondistended, Normal bowel sounds : - - Normal-appearing with Sandoval catheter in place, no tenderness is at the labia majora or minora. With slight distraction, Sandoval catheter is in place, draining yellow nonbloody transparent urine. Nothing draining around catheter. Back: Nontender, Normal Inspection. Negative for: CVA tenderness Skin: Normal color, No rash, No Trauma Neurological: Alert, Oriented x3, Cranial nerves II-XII grossly intact, Normal Strength, Normal Sensation Psychological: Normal affect, Normal Mood Diagnostic/Tx/Re-eval - Medical Decision Making After applying gentle [id number] traction on the Sandoval catheter within the urethra, the patient states that seemed to really help, and she felt much better. She was reassured, that if this happens again she may do this at home without harming anything. I do not think she needs any studies/testing right now, since she does not have any abdominal pain or tenderness, and the Sandoval is draining without any blood, and we discussed reasons to return. She is comfortable with that plan. ED Disposition - Plan for ED Patient: Disposition: Home or Assisted Living Diagnosis: Perineal pain in female, Sandoval catheter present Instructions: Caring for Your Indwelling Urinary Catheter Referrals: Niko Briggs MD [STAFF PHYSICIAN] - As Needed
== END 2020-02-16 15:43 | disposition home or self-care (01) ==
LOC: ED 15:38
PROVIDERS: Emergency Provider Emergency Medicine
DX: R10.2 Pelvic and perineal pain (principal)
CPT/HCPCS: 99282

== ENCOUNTER → 2020-03-02 10:45 | Outpatient (CLI) | payer OTHER, SELFPAY ==
[2020-02-16 13:15] VITALS: BMI 37.8
--- NOTE | 2020-03-02 11:09 | RAD_ITS ---
CLINICAL HISTORY: Female, 39 years old. Bladder injury. PROCEDURE: Cystogram. FLUOROSCOPY TIME (if supplied): (22 seconds) minutes/seconds 200 mL of contrast installed into the bladder in a retrograde fashion through indwelling catheter. The radiologist installed the contrast into the bladder. TECHNIQUE: (All elements of maximal sterile barrier technique followed, including US elements as applicable) The bladder is unremarkable. No evidence of leakage. RAD/Cystography min 3 Views IMPRESSION: Normal cystogram. Electronically Signed: Patric Rothman, at 12:00 EST , Service support ,
== END ==
PROVIDERS: Referring Provider Urology; Visit Provider Urology
DX: S37.20XS Unspecified injury of bladder, sequela (principal)
CPT/HCPCS: 51600; 74430; Q9965

== ENCOUNTER → 2020-10-08 09:50 | Outpatient (CLI) | payer OTHER, SELFPAY ==
--- NOTE | 2020-10-08 10:17 | BI_ITS ---
MAMMOGRAPHY - BILATERAL SCREENING REASON FOR EXAM: Female, 39 years old. Routine annual screening examination. PERTINENT HISTORY: Non-contributory. TECHNIQUE: Digital bilateral breast albert (3D mammographic acquisition) in the CC and MLO projections. 2-D mediolateral oblique (MLO) and craniocaudad (CC) views of both breasts were obtained. CAD: Full Field Digital Mammography with Computer Added Detection was performed. COMPARISON: Comparison is made with prior outside examination dated 02/23/2015. FINDINGS: Breast Composition: The breasts are heterogeneously dense, which may obscure small masses. There are no dominant masses or suspicious calcifications. No other significant abnormalities are identified. There has been no significant change since the prior study. BI/SCRN MAMM (CAD)W/ALBERT BILAT IMPRESSION: Stable bilateral screening mammogram. Yearly follow-up mammogram recommended. (A) ASSESSMENT CATEGORY: BIRADS Category 1: Negative. A letter regarding these results will be sent to the patient by the facility within 30 days. Approximately 10% of breast cancers are not detected by mammography. A normal mammogram should not delay biopsy of a clinically suspicious abnormality. [id number] Electronically Signed: Patric Rothman MD at 11:04 EDT , Service support ,
== END ==
PROVIDERS: Referring Provider Obstetrics & Gynecology; Visit Provider Obstetrics & Gynecology
DX: Z12.31 Encounter for screening mammogram for malignant neoplasm of breast (principal)
CPT/HCPCS: 77063; 77067

== ENCOUNTER 2021-04-06 14:18 | Outpatient (CLI) | payer BC, SELFPAY ==
[2021-04-06 15:26] LABS: EXAGEN MAILED SPECIMEN
[2021-04-06 18:17] LABS: Absolute Lymphocyte Count 1.46 X10^3/uL (0.83-4.51); Absolute Neutrophil Count 3.7 X10^3/uL (2.0-7.7); Basophil# 0.03 X10^3/uL; Basophil% 0.5 % (0-1); Eosinophil# 0.08 X10^3/uL; Eosinophils% 1.4 % (0-5); Hemoglobin 15.4 g/dL (12.0-15.0); Lymphocyte # 1.46 X10^3/ul (0.83-4.51); Lymphocyte % 25.5 % (19-41); Mean Corp Hgb Conc 34.2 g/dL (32-36); Mean Corpuscular Hgb 32.2 pg (27.0-32.0); Mean Corpuscular Volume 93.9 fL (81-99); Mean Platelet Vol. 10.8 fl (6.2-12.0); Monocyte# 0.47 X10^3/uL; Monocyte% 8.2 % (0-10); NRBC Flagged by Analyzer 0 % (0-5); Neutrophil # 3.66 X10^3/uL (2.7-7.7); Neutrophil % 64.1 % (47-70); Platelet Count 224 K/mm3 (150-450); RBC Distribution Width CV 11.9 % (11.6-14.6); RBC Distribution Width SD 41.8 fl (35.1-43.9); Red Blood Count 4.79 M/mm3 (4.2-5.4); White Blood Count 5.7 K/mm3 (4.4-11.0)
[2021-04-06 18:26] LABS: Color, Urine Yellow (Yellow); Glucose, Dipstick Normal (Normal); Ketone-Dipstick 5 mg/dl (Negative); Leukocyte Esterase-Dipstick Negative /ul (Negative); Nitrite-Dipstick Negative (Negative); Occult Blood-Urine Negative /ul (Negative); Protein-Dipstick Negative (Negative); Specific Gravity, Urine 1.015 (1.002-1.030); Urine Bilirubin Dipstick Negative (Negative); Urine Clarity Clear (Clear); Urine Urobilinogen Normal (Normal)
[2021-04-06 18:28] LABS: Partial Thromboplast Time 27.2 Seconds (24.1-36.2); Prothrombin Time (Protime)PT. 12.1 SECONDS (11.7-14.9)
[2021-04-06 18:43] LABS: ALB/GLOB Ratio 1.1 RATIO (0.9-2.4); AST(SGOT) 17 U/L (15-37); Alanine Aminotransfer ALT/SGPT 29 U/L (13-56); Alkaline Phosphatase 71 U/L (45-117); Anion Gap 7 (5-15); BUN 13 mg/dL (7-18); BUN/Creat Ratio 16.8 RATIO (10-20); Calcium,Total 9.3 mg/dL (8.5-10.1); Chloride 104 mmol/L (98-107); Creatinine, Serum 0.78 mg/dL (0.55-1.02); EST Glomerular Filtration Rate 87 mL/min (>60); Est Glom Filt Rate - Afr Amer 105 mL/min (>60); Globulin 3.7 g/dL (2.2-4.2); Glucose 84 mg/dL (74-106); Potassium 3.7 mmol/L (3.5-5.1); Protein, Total 7.7 g/dL (6.4-8.2); Sodium Level 138 mmol/L (136-145)
[2021-04-06 18:48] LABS: Protein, Urine (Random) 7.1 mg/dL (<11.9); Protein:Creat Ratio 122 mg/g CRE (0-200)
[2021-04-07 08:58] LABS: Hepatitis B Surface Antibody Non-Reactive; Hepatitis B Surface Antigen Non-Reactive (Nonreactive); Hepatitis C Antibody Non-Reactive (Nonreactive)
[2021-04-08 14:22] LABS: Thrombin Time 17.5 sec (0.0-23.0)
[2021-04-11 12:08] LABS: Dilute Russell Viper Venom 34.4 sec (0.0-47.0); Hexagonal Phase Phospholipid 6 sec (0-11); PTT-LA 31.2 sec (0.0-51.9); Thrombin Time 17.5 sec (0.0-23.0); dPT Confirm Ratio 1.08 Ratio (0.00-1.34)
[2021-04-11 17:33] LABS: Interpretation Comment: (.)
== END 2021-04-06 23:59 | disposition home or self-care (01) ==
LOC: MTLAB 14:23
PROVIDERS: PCP Nurse Practitioner Family; Referring Provider Internal Medicine Rheumatology; Visit Provider Internal Medicine Rheumatology
DX: M06.4 Inflammatory polyarthropathy (principal); R76.8 Other specified abnormal immunological findings in serum; L30.9 Dermatitis, unspecified; F41.9 Anxiety disorder, unspecified; Z86.718 Personal history of other venous thrombosis and embolism
CPT/HCPCS: 36415; 80053; 81002; 82570; 84156; 85025; 85598; 85610; 85670; 85730; 86706; 86803; 87340